=== PATIENT | male | born 1985 | race Hispanic/Latino ===

== ENCOUNTER 2017-09-09 16:05 | Emergency (ER) | payer SELFPAY ==
[2017-09-09] MEDS ORDERED: Naloxone 0.4 mg/ml Inj (Adult) ONE (16:24)
[2017-09-09] MEDS ORDERED: Propofol 10 mg/ml 0 MG/0 ML VIAL ONE (16:32)
[2017-09-09] MEDS ORDERED: Succinylcholine 200 mg/10 ml Inj IV ONE (16:32)
[2017-09-09] MEDS ORDERED: Propofol 10 mg/ml Inj (20 ML) ONE (16:32)
[2017-09-09] MEDS ORDERED: Naloxone 0.4 mg/ml Inj (Adult) IVP STA ×2 (16:37→16:38)
--- NOTE | 2017-09-09 16:45 | ED PDOC ---
HPI: Psych/Substance Abuse Time Seen by Provider: 09/09/17 16:17 Chief Complaint (Nursing): Substance Abuse Chief Complaint (Provider): Found Unresponsive at Home History Per: EMS History/Exam Limitations: no limitations (history limited due to patient being lethargic and difficult to arouse) Onset/Duration Of Symptoms: Hrs Current Symptoms Are (Timing): Still Present Suicide/Self Injury Attempted (Context): None Modifying Factor(s): Other (GHB ane methamphetamine) Additional Complaint(s): Deshaun Trejo, a 31 year old male, is brought into the ED by EMS after he was found unresponsive at home. As per EMS, attempts at arousal yielded in patient telling the EMS that he ingested metamphetamine and GHB. Patient had a similar episode 1 month ago that required intubation. Unable to obtain further history due to patient being lethargic and difficult to arouse. When awake patient requests not to be intubated. Past Medical History Reviewed: Historical Data, Nursing Documentation, Vital Signs Vital Signs: Last Vital Signs Temp 101.5 F H 09/09/17 16:08 Pulse 107 H 09/09/17 16:08 Resp 22 09/09/17 16:08 BP 138/89 09/09/17 16:08 Pulse Ox 97 09/09/17 16:08 - Medical History PMH: No Chronic Diseases - Surgical History Surgical History: No Surg Hx - Family History Family History: States: Unknown Family Hx - Social History Drugs: Other (GHB, methamphethamine) - Allergies Allergies/Adverse Reactions: Allergies Allergy/AdvReac Type Severity Reaction Status Date / Time No Known Allergies Allergy Verified 09/09/17 16:11 Review of Systems Review Of Systems: ROS cannot be obtained secondary to pt's inabilty to answer questions. (unable to obtain due to patient being lethargic and difficult to arouse) Physical Exam - Reviewed Nursing Documentation Reviewed: Yes Vital Signs Reviewed: Yes - Physical Exam Appears: Positive for: Non-toxic, No Acute Distress Head Exam: Positive for: ATRAUMATIC, NORMAL INSPECTION, NORMOCEPHALIC Skin: Positive for: Normal Color, Warm, Dry. Negative for: Rash Eye Exam: Positive for: EOMI, PERRL. Negative for: Normal appearance (pinpoint bilaterally), Nystagmus Neck: Positive for: Normal, Painless ROM, Supple Cardiovascular/Chest: Positive for: Regular Rate, Rhythm, Chest Non Tender. Negative for: Tachycardia Respiratory: Negative for: Normal Breath Sounds (periods of apnea), Rales, Rhonchi, Wheezing, Respiratory Distress Gastrointestinal/Abdominal: Positive for: Normal Exam, Bowel Sounds, Soft. Negative for: Tenderness, Guarding, Rebound Back: Positive for: Normal Inspection. Negative for: L CVA Tenderness, R CVA Tenderness Extremity: Positive for: Normal ROM. Negative for: Tenderness, Deformity, Swelling Neurologic/Psych: Positive for: Gait, Other (lethargic arousal when awake moving all extremities equal strength). Negative for: Alert (Patient responds to painful stimuli and loud stimuli by becoming awake and starts breathing.) - Laboratory Results Result Diagrams: 09/09/17 16:43 09/09/17 16:43 - ECG O2 Sat by Pulse Oximetry: 97 (RA) Pulse Ox Interpretation: Normal - Progress Re-evaluation Time: 22:05 Condition: Improved (Awake alert no focal neuro deficits. Denies SI/HI) Medical Decision Making Medical Decision Makin Initial Impression 31 y/o male presenting with substance intoxication Initial Plan: * EKG * Acetaminophen * Alcohol Serum * CMP * Drug Screen * Salicylate * Troponin * Udip * CBC * PT/INR * CXR * Narcan 0.4 mg IVP * Reevaluation Scribe Attestation: Documented by Trisha Callejas, acting as a scribe for Vikas Castillo MD. Provider Scribe Attestation: All medical record entries made by the Scribe were at my direction and personally dictated by me. I have reviewed the chart and agree that the record accurately reflects my personal performance of the history, physical exam, medical decision making, and the department course for this patient. I have also personally directed, reviewed, and agree with the discharge instructions and disposition. Disposition - Clinical Impression Clinical Impression: Substance abuse - Patient ED Disposition Is Patient to be Admitted: No Counseled Patient/Family Regarding: Studies Performed, Diagnosis, Need For Followup, Rx Given - Disposition Referrals: [facility] [Outside] [facility] [Outside] Disposition: Routine/Home Disposition Time: 22:06 Condition: FAIR Instructions: Methamphetamine Abuse (ED), Polysubstance Abuse (ED) Forms: [employer] (Spanish)
[2017-09-09 16:46] LABS: BASO % 0.4 % (0.0-2.0); EOS # 0.1 K/uL (0.0-0.7); EOS % 1.1 % (0.0-4.0); HEMATOCRIT 40.5 % (35.0-51.0); LYMPH # 1.7 K/uL (1.0-4.3); LYMPH % 26.7 % (20.0-40.0); MEAN CORPUSCULAR HEMOGLOBIN 28.8 pg (27.0-31.0); MEAN CORPUSCULAR HGB CONC 33.5 g/dL (33.0-37.0); MEAN PLATELET VOLUME 8.1 fl (7.2-11.7); MONO # 0.5 K/uL (0.0-0.8); MONO % 8.6 % (0.0-10.0); NEUT % 63.2 % (50.0-75.0); RED CELL DISTRIBUTION WIDTH 13.9 % (11.5-14.5); WHITE BLOOD COUNT 6.3 K/uL (4.8-10.8)
[2017-09-09 17:04] LABS: ALB/GLOB RATIO 1.7 (1.0-2.1); ALCOHOL SERUM < 10 mg/dl (0-10); ALKALINE PHOSPHATASE 57 U/L (38-126); ALT/SGPT 38 U/L (21-72); AST/SGOT 23 U/L (17-59); BILIRUBIN,TOTAL 0.7 mg/dl (0.2-1.3); BLOOD UREA NITROGEN 13 mg/dl (9-20); CALCIUM 9.1 mg/dL (8.4-10.2); CARBON DIOXIDE 31 mmol/L (22-30); CHLORIDE 103 mmol/L (98-107); GFR AFRICAN-AMERICAN > 60; GLUCOSE,RANDOM 116 mg/dL (75-110); POTASSIUM 3.6 MMOL/L (3.6-5.0); SODIUM 145 mmol/l (132-148); TOTAL PROTEIN 7.7 G/DL (6.3-8.2)
--- NOTE | 2017-09-09 17:44 | RAD ---
HISTORY: cough COMPARISON: No prior. FINDINGS: LUNGS: No active pulmonary disease. PLEURA: No significant pleural effusion identified, no pneumothorax apparent. CARDIOVASCULAR: Normal. OSSEOUS STRUCTURES: No significant abnormalities. VISUALIZED UPPER ABDOMEN: Normal. OTHER FINDINGS: None. IMPRESSION: No active disease.
[2017-09-09 20:02] VITALS: TEMP 97.5
[2017-09-09 21:56] VITALS: BP 116/72; PULSE 67; RESP 17
[2017-09-09 22:07] VITALS: O2SAT 97
--- NOTE | 2017-09-12 12:42 | CARD ---
APPROVED REPORT EKG Measurement Heart [id number] <Conclusion> NSR
== END 2017-09-09 22:30 | disposition home or self-care (01) ==
LOC: H.ER 16:05
DX: F19.10 Other psychoactive substance abuse, uncomplicated (principal)
CPT/HCPCS: 71010; 80053; 82948; 84484; 85025; 85610; 93005; 96374; 99285; G0480; J2310